=== PATIENT | male | born 1945 | race Caucasian/White ===

== ENCOUNTER → 2017-06-25 | Day surgery (SDC) | payer BC ==
[~2017-06-25] VITALS: Ht 160 cm; Wt 70.5 kg
[~2017-06-25] MED LIST: ATOR10TA15 PO; BUPIVACAINE HCL PF 0.5% 10 ML VIAL INFIL ONE; CEPH-460 PO; CHEL50TA; CHLORHEXIDINE GLUCONATE 2 % 1 PACK (2 CLOTHS) TOPICAL PRN; DHEA50CA; GABA300C5 PO; HYDR12.57 PO; INSULIN HUMAN REGULAR 1,000 UNITS/10 ML VIAL SQ PRN; LACTATED RINGER'S 1000 ML IV PRN; LIDOCAINE HCL 2% 50 ML VIAL INFIL ONE; LIDOCAINE HCL 2% 50 ML VIAL ONE; LISI-515 PO; METOPROLOL TARTRATE 25 MG TAB PO PRN; NEOMYCIN/POLYMYXIN 1 ML G.U. IRRIGANT TOPICAL ONE; NEOMYCIN/POLYMYXIN/DEXAMETHASONE OPTH OINT 3.5 GM TUBE ONE; NIAC500T5 PO; NORC5TAB PO; OMEP20TA PO; POVIDONE IODINE 5% (ANTISEPSIS KIT) 4 APPLICATIONS EACH NARE PRN; PROPOFOL 200 MG/20 ML AMP IV ONE; SODIUM CHLORID 0.9% 500 ML IV PRN; TURMPOW; ceFAZolin 2 GM PREMIX 50 ML IV SCH
[2017-06-25 08:20] VITALS: BP 123/67; PULSE 56; RESP 18; TEMP 97; O2SAT 99
[2017-06-25 08:30] LABS: HEMATOCRIT 43.7 % (39.0-51.0); MEAN CELL VOLUME 87.7 FL (80.0-100.0); MEAN CORPUSCULAR HEMOGLOBIN 29.9 PG (27.0-34.0); PLATELET COUNT 190 TH/MM3 (150-450); RED BLOOD COUNT 4.99 MIL/MM3 (4.50-5.90); RED CELL DISTRIBUTION WIDTH 12.1 % (11.6-17.2); REVIEW FLAG FINAL; WHITE BLOOD COUNT 6.9 TH/MM3 (4.0-11.0)
[2017-06-25 11:00] VITALS: BP 105/64; PULSE 54; RESP 16; TEMP 98; O2SAT 98
--- NOTE | 2017-06-25 13:11 | MP ---
cc: JASON AZEVEDO III, M.D. DATE OF SURGERY 06/23/2017 PREOPERATIVE DIAGNOSIS Left carpal tunnel syndrome, severe. POSTOPERATIVE DIAGNOSIS Left carpal tunnel syndrome, severe. PROCEDURE Left open carpal tunnel release. SURGEON Jason Azevedo III, MD PROCEDURE The patient was brought to the operating and placed supine on the operating table. After the correct site and side of surgery were verified by members of each team in the room multiple times including the patient and myself and after adequate preoperative markings, preoperative written consents were verified, and after an adequate preoperative time out was performed to everyone's satisfaction and after adequate IV sedation had been achieved, the left upper extremity was prepped and draped in the traditional sterile surgical fashion. 50% plain lidocaine and 0.5% plain Marcaine was infiltrated in the skin and subcutaneous tissue at the base of palm. The limb was exsanguinated with an Juan Carlos wrap and then a highly placed well-padded axillary tourniquet was inflated to 200 mmHg for a total of 11 minutes. A longitudinal incision made at the base of the palm, carried down through skin and subcutaneous tissue. Blunt dissection was performed through the palmar fascia and this was retracted in opposite directions. The transverse carpal ligament was identified and divided in its midline from its proximal most to its distal-most extents completely freeing the carpal tunnel contents. The median nerve was identified. It was found be pale, but not completely avascular. There was a hypertrophic tenosynovium. There was no other evidence of any mass effect or anatomic abnormality. Thorough irrigation was performed. There was no other evidence of any constricting bands. The skin edges were reapproximated using interrupted 4-0 nylon sutures. The hand and arm were thoroughly cleansed and dried. Betadine Adaptic dressings were applied on top of the wound followed by a bulky fluff dressing and a circumferential soft dressing in the usual fashion. The patient was awakened from anesthesia and transported to the Post Anesthesia Care Unit awake and in stable condition. Sponge, needle and instrument counts were correct at the end of the case as reported by nurses in the room. MD ABHISHEK Huggins III/ANGELITO /9:52 AM /1:02 PM
--- NOTE | 2017-06-25 16:43 | EKG ---
Date Performed: 06/25/2017 Time Performed: 08:32:37 PTAGE: 72 years EKG: SINUS BRADYCARDIA WITH FIRST DEGREE AV BLOCK MODERATE INTRAVENTRICULAR CONDUCTION DELAY ABN ORMAL ECG NO PREVIOUS TRACING DOCTOR: Jovany Nixon Interpretating Date/Time 06/25/2017 16:41:35
== END | disposition home or self-care (01) ==
LOC: PHSDC 07:09
PROVIDERS: ATTEND Orthopaedic Surgery Hand Surgery
DX: G56.02 Carpal tunnel syndrome, left upper limb (principal); I10 Essential (primary) hypertension; R94.31 Abnormal electrocardiogram [ECG] [EKG]
CPT/HCPCS: 01810; 36415; 64721; 85027; 93005; J3010; J7120